=== PATIENT | male | born 1980 | race Caucasian/White ===

== ENCOUNTER 2017-12-18 11:13 | Emergency (ER) | payer OTHER ==
[2017-12-18 11:19] VITALS: O2SAT 100; BMI 29.0
[2017-12-18] MEDS ORDERED: Iohexol 240 (50 ml) PO ONE (12:05)
[2017-12-18] MEDS ORDERED: Morphine 4 MG/ML VIAL IV ONE (12:05)
--- NOTE | 2017-12-18 12:06 | C.PDOC ---
History Of Present Illness 37 y/o male, with no significant PMH, who presents to the emergency department complaining of right upper and lower abdominal pain since 3 days ago. Patient reports the pain has become worse since then and decided to come to the ER for further evaluation. Patient denies chest pain, shortness of breath, headache, fever, chills, cough, nausea, vomiting, diarrhea, changes in bowel habits, dysuria, hematuria, frequency, flank pain, or other complaints. Time Seen by Provider: 12/18/17 11:52 Chief Complaint (Nursing): Abdominal Pain History Per: Patient History/Exam Limitations: no limitations Onset/Duration Of Symptoms: Days Current Symptoms Are (Timing): Worse Location Of Pain/Discomfort: RUQ, RLQ Radiation Of Pain To:: Flank (right ) Associated Symptoms: denies: Fever, Nausea, Vomiting, Diarrhea Exacerbating Factors: None. denies: Cough Alleviating Factors: None Past Medical History Reviewed: Historical Data, Nursing Documentation, Vital Signs Vital Signs: Last Vital Signs Temp 98.4 F 12/18/17 15:10 Pulse 90 12/18/17 15:10 Resp 16 12/18/17 15:10 BP 127/88 12/18/17 15:10 Pulse Ox 100 12/18/17 19:21 Family History: States: No Known Family Hx - Social History Hx Alcohol Use: No Hx Substance Use: No Review Of Systems Constitutional: Negative for: Fever Cardiovascular: Negative for: Chest Pain Respiratory: Negative for: Shortness of Breath Gastrointestinal: Positive for: Abdominal Pain (right upper and lower quadrant pain ). Negative for: Nausea, Vomiting Genitourinary: Negative for: Dysuria, Frequency Skin: Negative for: Rash Neurological: Negative for: Weakness Physical Exam - Physical Exam Appears: Well, Non-toxic, No Acute Distress Skin: Normal Color, Warm, Dry Head: Atraumatic, Normacephalic Eye(s): bilateral: Normal Inspection, PERRL, EOMI Cardiovascular: Rhythm Regular, No Murmur Respiratory: Normal Breath Sounds, No Decreased Breath Sounds, No Rales, No Rhonchi, No Wheezing Gastrointestinal/Abdominal: No Normal Exam, Bowel Sounds (active), Tenderness ( right lower quadrant and right flank tenderness), No Distention, Guarding, No Rebound Extremity: Normal ROM Neurological/Psych: Oriented x3, Normal Speech, Normal Cognition ED Course And Treatment - Laboratory Results Result Diagrams: 12/18/17 12:49 12/18/17 12:49 O2 Sat by Pulse Oximetry: 100 (room air) Pulse Ox Interpretation: Normal Medical Decision Making Medical Decision Making: Impression: 37 y/o male with right upper quadrant and right flank tenderness c/o right upper and lower abdominal pain. Differential Diagnosis included but are not limited to: r/o appendicitis Plan: -- CT abdomen and pelvis with IV contrast -- Labs -- Morphine, Omnipaque, and Sodium Chloride -- Reassess and disposition Progress Note: 12/18/[address]: 323 Impression: No CT evidence for acute appendicitis. 12/18/2017 4:20 PM On reevaluation patient is still complaining of pain on the right upper quadrant region. Patient cannot move due to pain. The plan is to order a CXR and RUQ sonogram. 1914 Labs came back negative. Patient prescribed pain medications. Patient advised to follow up with clinic in 1-2 days. Patient stable and ready for discharge. Disposition - Disposition Referrals: [facility] [Outside] [facility] [Outside] [facility] [Outside] Disposition: HOME/ ROUTINE Disposition Time: 19:28 Condition: GOOD Additional Instructions: Please call the closest clinic for an appointment and take the prescribes medications as directed. Prescriptions: Cyclobenzaprine [Cyclobenzaprine HCl] 10 mg PO Q8 #15 tab Ibuprofen [Motrin Ib] 600 mg PO Q6 #20 tablet Instructions: Muscle and Bone Pain (DC), Flank Pain (DC) Forms: [email or web address] (Latvian) - Clinical Impression Clinical Impression: Musculoskeletal disorder, Acute flank pain - Scribe Statement The provider has reviewed the documentation as recorded by the Jb Gonzalesibe Attestation: Rody Gonzalesibe Attestation: All medical record entries made by the Scribe were at my direction and personally dictated by me. I have reviewed the chart and agree that the record accurately reflects my personal performance of the history, physical exam, medical decision making, and the department course for this patient. I have also personally directed, reviewed, and agree with the discharge instructions and disposition.
[2017-12-18] MEDS ORDERED: Sodium Chloride 0.9% 1,000 ML IV ONE (12:08)
[2017-12-18] MEDS ORDERED: Iohexol 240 (50 ml) ONE (12:20)
[2017-12-18] MEDS ORDERED: Morphine 4 MG/ML VIAL ONE (12:21)
[2017-12-18] MEDS ORDERED: Sodium Chloride 0.9% 1,000 ML ONE (12:21)
[2017-12-18 12:56] LABS: BASO % 0.7 % (0.0-2.0); EOS % 0.7 % (0.0-4.0); HEMOGLOBIN 7.5 g/dL (12.0-18.0); LYMPH % 17.6 % (20.0-40.0); MEAN CELL VOLUME 55.9 fL (80.0-94.0); MEAN CORPUSCULAR HEMOGLOBIN 16.3 pg (27.0-31.0); MEAN CORPUSCULAR HGB CONC 29.1 g/dL (33.0-37.0); MEAN PLATELET VOLUME 9.4 fL (7.2-11.7); MONO # 0.5 K/uL (0.0-0.8); MONO % 8.9 % (0.0-10.0); NEUT # 3.9 K/uL (1.8-7.0); NEUT % 72.1 % (50.0-75.0); NRBC % 0.2 % (0.0-2.0); RBC 4.6 Mil/uL (4.40-5.90); RED CELL DISTRIBUTION WIDTH 20.1 % (11.5-14.5); WHITE BLOOD COUNT 5.5 K/uL (4.8-10.8)
[2017-12-18 13:04] LABS: INR 1.2; PROTHROMBIN TIME 12.6 SECONDS (9.7-12.2)
[2017-12-18 13:13] LABS: ALB/GLOB RATIO 1.3 (1.0-2.1); ALBUMIN 4.7 g/dL (3.5-5.0); ALT/SGPT 57 U/L (21-72); AST/SGOT 40 U/L (17-59); BLOOD UREA NITROGEN 5 mg/dL (9-20); CALCIUM 9.3 mg/dl (8.6-10.4); GFR AFRICAN-AMERICAN > 60; GFR NON-AFRICAN AMERICAN > 60; LIPASE 86 U/L (23-300)
[2017-12-18] MEDS ORDERED: Iodixanol 320 MG/ML 100 ML BOTTLE IV ONE (13:44)
[2017-12-18 15:11] VITALS: TEMP 98.4
--- NOTE | 2017-12-18 15:27 | CT ---
PROCEDURE: CT Abdomen and Pelvis with contrast HISTORY: Abdominal pain COMPARISON: None. TECHNIQUE: CT scan of the abdomen and pelvis was performed after administration of intravenous contrast. Oral contrast was administered. Coronal and sagittal reformatted images were obtained. Contrast dose: 100 mL Visipaque Radiation dose: Total exam DLP = 513.48 mGy-cm. This CT exam was performed using one or more of the following dose reduction techniques: Automated exposure control, adjustment of the mA and/or kV according to patient size, and/or use of iterative reconstruction technique. FINDINGS: LOWER THORAX: There is dependent atelectasis in the lung bases. LIVER: Mild hepatomegaly and diffuse fatty infiltration in the liver. No gross lesion or ductal dilatation. GALLBLADDER AND BILE DUCTS: No calcified gallstones. PANCREAS: Normal in size with homogeneous enhancement. No gross lesion or ductal dilatation. SPLEEN: The spleen is enlarged and there is homogeneous enhancement without focal lesion. ADRENALS: No discrete nodule. KIDNEYS AND URETERS: Normal in size with homogeneous enhancement. No hydronephrosis. No solid mass. VASCULATURE: No aortic aneurysm. BOWEL: Unremarkable. No obstruction. No gross mural thickening. APPENDIX: Normal appendix. PERITONEUM: No free fluid. No free air. LYMPH NODES: No enlarged lymph nodes. BLADDER: Partially decompressed. REPRODUCTIVE: Unremarkable. BONES: No acute fracture. OTHER FINDINGS: There is mild asymmetric enlargement of the right deep abdominal wall musculature with decreased density and there are inflammatory changes in the subjacent mesenteric fat. IMPRESSION: No CT evidence for acute appendicitis. Asymmetric enlargement of the right deep abdominal wall muscle with decreased density could represent nonspecific inflammatory changes/edema versus age indeterminate posttraumatic changes. Inflammatory changes in the subjacent mesenteric fat which could be reactive or related to omental infarction. Mild hepatosplenomegaly and diffuse fatty infiltration in the liver.
--- NOTE | 2017-12-18 17:08 | RAD ---
HISTORY: right rib pain COMPARISON: No prior. FINDINGS: LUNGS: There are low lung volumes. The lungs are clear. PLEURA: No significant pleural effusion identified, no pneumothorax apparent. CARDIOVASCULAR: Normal. OSSEOUS STRUCTURES: No significant abnormalities. VISUALIZED UPPER ABDOMEN: Normal. OTHER FINDINGS: None. IMPRESSION: No acute findings.
[2017-12-18] MEDS ORDERED: Lidocaine 5% Patch TD ONE (19:15)
[2017-12-18 19:47] VITALS: BP 129/83; PULSE 106; RESP 20
--- NOTE | 2017-12-19 12:25 | US ---
HISTORY: RUQ pain COMPARISON: None. TECHNIQUE: Grayscale imaging was performed. FINDINGS: LIVER: Measures 16.9 cm in length. There is diffuse increased echogenicity of the liver parenchyma. No mass. No intrahepatic bile duct dilatation. GALLBLADDER: There are no gallstones, wall thickening or pericholecystic fluid. The sonographic Palomino's sign is negative. COMMON BILE DUCT: Measures 4.0 mm. No stones. No dilatation. PANCREAS: Unremarkable as visualized. No mass. No ductal dilatation. RIGHT KIDNEY: Measures 10.4 cm in length. Normal echogenicity. No calculus, mass, or hydronephrosis. AORTA: No aneurysmal dilatation. IVC: Unremarkable. OTHER FINDINGS: None . IMPRESSION: Mild hepatomegaly. No cholelithiasis or biliary dilatation. A preliminary report was provided by [facility].
[2017-12-19] MEDS ORDERED: Lidocaine 5% Patch TD ONE (18:56)
== END 2017-12-18 19:47 | disposition home or self-care (01) ==
LOC: C.ER 11:13
DX: R10.9 Unspecified abdominal pain (principal); M79.9 Soft tissue disorder, unspecified
CPT/HCPCS: 71045; 74177; 76705; 80053; 83690; 85025; 85610; 85730; 86850; 86900; 96361; 96374; 96375; 99284; J1885; J2270; J7030; Q9966; Q9967